=== PATIENT | male | born 1980 | race Caucasian/White ===

== ENCOUNTER 2016-07-15 18:37 | Emergency (ER) | payer SELFPAY ==
--- NOTE | 2016-07-22 07:41 | ER ---
ADMIT: 07/15/2016 RM/LOC: ER [facility] MR#: [id number] [address] [id number] SHERINE MEHREEN Salgado [address] [place], [place] [address] [facility] Emergency Room Report SEX: M AGE: 35 : 1980 DATE: 07/15/2016 TIME: 1837 hours. Please refer to my T-sheet for complete H and P. Briefly, patient is a 35-year-old, who comes in with a crush injury to his left hand, mostly his second, third, and fourth digits. It happened yesterday under a concrete block. He kind of kept it covered, comes in still hurting him up. He has not taken anything for the pain. His tetanus shot will be addressed. PHYSICAL EXAMINATION: His third digit has a large abrasion to the volar aspect, small subungual hematoma, and soft tissue swelling. He is neurovascularly intact distally. His ring finger similarly has a subungual hematoma and large abrasions were noted. Neurovascularly intact distally. EMERGENCY DEPARTMENT COURSE: X-ray of his left hand revealed tuft fractures of the second, third, and fourth digits. His third and fourth digits were digitally blocked using 3 mL of bupivacaine, had immediate anesthesia, felt much better. We cleansed the abrasions, covered with nonstick cover and placed a splint over the tips of those 2. He tolerated well. We gave him a dose of Keflex, 2 [place] and he was ready for discharge. ASSESSMENT: 1. Left fractures of his second, third, and fourth nicko. 2. Abrasions diffusely throughout the third and fourth digits with subungual hematomas that were dry and unable to trephinate. 3. Crush injury. PLAN: Keflex 500 t.i.d. for 5 days, [place] 5, gave him script for #20. Return if worse. I am going him to follow up with Dr. Estrada in 2 to 3 days. Venu Phan MD/ annmarie JOB #: [id number] CC: David Gu MD, Attending Physician
== END 2016-07-15 20:10 | disposition home or self-care (01) ==
LOC: ER 18:37
PROC: 2W3KX1Z Immobilization of Left Finger using Splint (ICD-10-PCS; principal; 2016-07-15)
DX: S67.193A Crushing injury of left middle finger, initial encounter (principal); S67.191A Crushing injury of left index finger, initial encounter; S67.195A Crushing injury of left ring finger, initial encounter; S62.631A Displaced fracture of distal phalanx of left index finger, initial encounter for closed fracture; S62.633A Displaced fracture of distal phalanx of left middle finger, initial encounter for closed fracture; S62.635A Displaced fracture of distal phalanx of left ring finger, initial encounter for closed fracture; W23.0XXA Caught, crushed, jammed, or pinched between moving objects, initial encounter; Y92.009 Unspecified place in unspecified non-institutional (private) residence as the place of occurrence of the external cause